=== PATIENT | male | born 1965 | race Caucasian/White ===

== ENCOUNTER → 2024-04-21 14:38 | Outpatient (REF) | payer BC, SELFPAY | LOC: PAVMRI 14:38 | PROVIDERS: ATTENDING PHYSICIAN Psychiatry & Neurology Neurology | DX: G45.9 Transient cerebral ischemic attack, unspecified (principal); G37.9 Demyelinating disease of central nervous system, unspecified | CPT/HCPCS: 70544; 70547; 70553; A9575 ==

== ENCOUNTER → 2024-04-23 15:52 | Outpatient (REF) | payer BC, SELFPAY | LOC: MRI 15:52 | PROVIDERS: ATTENDING PHYSICIAN Psychiatry & Neurology Neurology | DX: G37.9 Demyelinating disease of central nervous system, unspecified (principal) | CPT/HCPCS: 72156 ==